=== PATIENT | female | born 1980 | race Caucasian/White ===

== ENCOUNTER 2016-12-05 21:05 | Emergency (ER) | payer OTHER ==
[~2016-12-05] VITALS: Ht 170.2 cm; Wt 55.0 kg
[2016-12-05 21:14] VITALS: BP 130/90; PULSE 99; RESP 16; TEMP 98; O2SAT 97
[2016-12-05] MEDS ORDERED: IBUPROFEN 600 MG TAB PO ONE (22:45)
[2016-12-05] MEDS ORDERED: TETANUS/DIPHTHERIA TOXOID ADULT 0.5 ML VIAL IM ONE (22:45)
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
== END 2016-12-06 00:20 | disposition home or self-care (01) ==
LOC: NEPA 21:05
DX: S09.90XA Unspecified injury of head, initial encounter (principal); S01.01XA Laceration without foreign body of scalp, initial encounter; F17.210 Nicotine dependence, cigarettes, uncomplicated; F12.90 Cannabis use, unspecified, uncomplicated; V43.62XA Car passenger injured in collision with other type car in traffic accident, initial encounter; Y92.410 Unspecified street and highway as the place of occurrence of the external cause
CPT/HCPCS: 12002; 70450; 71020; 72125; 90471; 90714; 99284; L0150

== ENCOUNTER 2016-12-17 11:34 | Emergency (ER) | payer OTHER ==
[~2016-12-17] VITALS: Ht 170.2 cm; Wt 55.0 kg
[2016-12-17 11:36] VITALS: BP 111/78; PULSE 84; RESP 20; TEMP 97.7; O2SAT 97
--- NOTE | 2016-12-17 12:59 | PD ---
HPI Chief Complaint: Wound/Suture/Staple Re-Check Time Seen by Provider: 12:58 Travel History International Travel<30 days: No Contact w/Intl Traveler<30days: No Traveled to known affect area: No History of Present Illness HPI 36-year-old female presents to the emergency department for removal of bessie to the superior parietal scalp. Patient states they're placed about 10 days ago. Denies any significant pain. No new injury. No fever or chills. No other symptoms to report. PFSH Past Medical History Anxiety: Yes Diminished Hearing: No Social History Alcohol Use: Yes (SOCIALLY) Tobacco Use: Yes (1/2PPD) Substance Use: Yes ("POT FOR MY ANXIETY") Allergies-Medications (Allergen,Severity, Reaction): Coded Allergies: No Known Allergies (Unverified , 12/17/16) Reported Meds & Prescriptions Reported Meds & Active Scripts Active No Active Prescriptions or Reported Medications Review of Systems Except as stated in HPI: all other systems reviewed are Neg Physical Exam Narrative GENERAL: Well-nourished, well-developed female patient in acute distress SKIN: Warm and dry. Laceration superior parietal scalp well approximated without any erythema or edema. No drainage. HEAD: Normocephalic. EYES: No scleral icterus. No injection or drainage. NECK: Supple, trachea midline. No JVD or lymphadenopathy. CARDIOVASCULAR: Regular rate and rhythm without murmurs, gallops, or rubs. RESPIRATORY: Breath sounds equal bilaterally. No accessory muscle use. Data Data Last Documented VS Vital Signs Date Time Temp Pulse Resp B/P Pulse Ox O2 Delivery O2 Flow Rate FiO2 12/17/16 11:36 97.7 84 20 111/78 97 Room Air MDM Medical Decision Making Medical Screen Exam Complete: Yes Emergency Medical Condition: Yes Medical Record Reviewed: Yes Differential Diagnosis Laceration well approximated versus infected versus healing versus dehisced wound Narrative Course 36-year-old female presents to emergency department for removal of bessie from her scalp. 3 bessie are removed without difficulty. Patient is discharged home to follow-up with primary care provider. She agrees to return immediately if any acute worsening of symptoms. Diagnosis Primary Impression: Laceration Additional Impression: Encounter for staple removal Referrals: Primary Care Physician Patient Instructions: Acute Wound Care (ED), General Instructions Additional Instructions: You may shower Utilize caution when brushing her hair Follow-up with primary care provider Return immediately with any acute worsening of symptoms Med/Other Pt SpecificInfo: No Change to Meds Scripts No Active Prescriptions or Reported Meds Disposition: 01 DISCHARGE HOME Condition: Stable Soha Del Cid Dec 17, 2016 12:59
== END 2016-12-17 13:25 | disposition home or self-care (01) ==
LOC: NEPB 11:34
DX: S01.01XD Laceration without foreign body of scalp, subsequent encounter (principal); X58.XXXD Exposure to other specified factors, subsequent encounter; Z48.02 Encounter for removal of sutures
CPT/HCPCS: 99281